=== PATIENT | female | born 1945 | race Caucasian/White ===

== ENCOUNTER 2020-11-02 15:26 | Inpatient (IN) | payer OTHER ==
[~2020-11-02] VITALS: Ht 157.5 cm; Wt 94.3 kg
[2020-11-02 15:37] VITALS: BP 153/69
[2020-11-02] MEDS ORDERED: ASA81BEC PO (15:58)
[2020-11-02 16:03] LABS: ABSOLUTE LYMPHOCYTES 1.4 thou/uL (0.8-5.3); ABSOLUTE MONOCYTES 0.4 thou/uL (0.0-1.2); ABSOLUTE NEUTROPHILS 2.5 thou/uL (1.6-8.1); BASOPHILS 0.6 %; EOSINOPHILS 1.1 %; HEMATOCRIT 33.8 % (37.0-47.0); HEMOGLOBIN 11.3 gm/dL (12.0-15.0); LYMPHOCYTES 33.1 %; MCH 27.9 pg (26.0-34.0); MCHC 33.6 g/dL (28.0-37.0); MONOCYTES 8.1 %; MPV 7.3 fl. (7.2-11.1); NUCLEATED RBCS 0 /100WBC; PLATELET COUNT* 108 thou/uL (150-400); POLYS 57.1 %; RBC 4.07 mil/uL (4.20-5.00); RDW-CV 13.9 % (10.5-14.5); WBC 4.4 thou/uL (4.0-11.0)
[2020-11-02 16:16] LABS: APTT 25.6 Seconds (25.0-31.3); CALCIUM 8.7 mg/dL (8.5-10.1); CREATININE 1.3 mg/dL (0.6-1.3); POTASSIUM 4.5 mmol/L (3.5-5.1); PROTIME 10.6 Seconds (9.20-11.50)
--- NOTE | 2020-11-02 16:20 | EKG ---
[place] [address] ELECTROCARDIOGRAM REPORT Name: KARI DELGADILLO Room: [facility]#: [id number] Admission: 11/02/20 Attend Phys: Discharge: Date of : 47 Date of Service: 11/02/20 1543 Report #: [id number] THIS REPORT FOR: //name// [facility] ED Test Date: 2020-11-02 Test Time: 15:43:54 Pat Name: KARI DELGADILLO Department: Room: Gender: F Features Reporter: RODRICK : 1945 Requested By: Justin Morris Order Number: [id number] MD: Gabo Chappell Measurements Intervals [place] Rate: 81 P: 3 VA: 156 QRS: 32 QRSD: 97 T: -12 QT: 368 QTc: 428 Interpretive Statements Sinus rhythm Borderline T abnormalities, anterior leads No previous ECG available for comparison Electronically Signed On 11-02-2020 16:20:09 [employer]LE[employer] SERVICES REPRESENTATIVE by Gabo Chappell [email or web address] <ELECTRONICALLY SIGNED> By: Gabo Chappell MD, [facility] 11/02/20 1620 1543 1543 Gabo Chappell MD, FACC /EPI
[2020-11-02 16:28] LABS: ALBUMIN 3.7 g/dL (3.4-5.0); TOTAL BILIRUBIN 0.7 mg/dL (<0.1-1.0); TOTAL PROTEIN 7.9 g/dL (6.4-8.2)
[2020-11-02 16:48] LABS: URINE BILIRUBIN NEGATIVE (Negative); URINE BLOOD 2+ (Negative); URINE CLARITY CLEAR; URINE COLOR YELLOW; URINE GLUCOSE-RANDOM NEGATIVE (Negative); URINE KETONES NEGATIVE (Negative); URINE LEUKOCYTES-REFLEX NEGATIVE (Negative); URINE NITRITE-REFLEX NEGATIVE (Negative); URINE PROTEIN 1+ (Negative); URINE SPECIFIC GRAVITY 1.025 (1.005-1.030)
[2020-11-02 16:58] LABS: CRYSTALS None Seen /LPF (None Seen); HYALINE CASTS 0-3 Few /LPF (None Seen); MUCUS None Seen strn/LPF (None Seen); SQUAMOUS 4-10 Moderate /LPF (0-3); URINE RBC 3-10 Few /HPF (0-2); URINE WBC-REFLEX 0-5 Rare /HPF (0-5)
[2020-11-02] MEDS ORDERED: LIPITOR10 MG PO (17:50)
[2020-11-02] MEDS ORDERED: NORVASC 2.5 MG2.5 M1 PO (17:50)
[2020-11-02] MEDS ORDERED: TOPROL XL25 MG PO (17:51)
[2020-11-02 18:13] VITALS: BP 106/70
--- NOTE | 2020-11-02 19:02 | NUR ---
PT ORIENTED TO ROOM AND UNIT, BED LOW AND LOCKED, SIDE RAILS UPX3, CALL LIGHT IN REACH. WILL CONTINUE TO ASSESS.
[2020-11-02 19:15] VITALS: BP 120/64
[2020-11-02 22:00] VITALS: BP 106/57
--- NOTE | 2020-11-03 04:38 | NUR ---
PT A&O X 4. ON 2L BY SD. MEDS GIVEN ORDERED. DENIED PAIN. UP TO BSC INDENPENDENTLY. CALL LIGHT WITHIN REACH. WILL CONTINUE TO MONITOR.
[2020-11-03 07:55] VITALS: BP 112/61
[2020-11-03 16:00] VITALS: BP 114/64
--- NOTE | 2020-11-03 16:50 | NUR ---
UNABLE TO REACH DAUGHTER ON PHONE. REVIEWED CHART AND SPOKE WITH TEAM. PT.DOES NOT SPEAK DJ[place] WELL. SHE LIVES WITH HER DAUGHTR AND SON AND EXTENDED FAMILY. SHE HAS A CANE. HAS BEEN ABLE TO GET UP INDEPENDENTLY. HAS O2 BUT NOT AT HOME. CM WILL FOLLOW FOR DISCHARGE PLANNING.
--- NOTE | 2020-11-03 18:46 | NUR ---
PT A&OX4, VSS. PT REMAINS AFEBRILE THIS SHIFT. PT UP TO BSC INDEPENDENTLY. PT ON 2L O2 BY NC. PT AMB W/CANE AND ASSIST X1. IV TO LAC PATENT, SALINE LOCKED. PT ACCUCHECK TO MONITOR, NO INSULIN AT THIS TIME. PT DGTR UPDATED BY PHONE. PT RESTS IN BED WITH CALL LIGHT IN REACH, WILL CONTINUE TO MONITOR.
[2020-11-03 19:27] VITALS: BP 137/71
[2020-11-04 00:18] VITALS: BP 118/68
--- NOTE | 2020-11-04 04:13 | NUR ---
PATIENT HAS REMAINED ALERT AND ORIENTED X 4 THROUGHOUT THE SHIFT AND RESTING QUIETLY ON HOURLY ROUNDS. UP INDEPENDENTLY IN THE ROOM WITH CANE AND STEADY GAIT. NO FEVER THIS SHIFT. DECLINED HS TYLENOL. VITAL SIGNS STABLE ON O2 2L/MIN BY NASAL CANNULA. BM THIS SHIFT. CONTINUE TO MONITOR.
[2020-11-04 06:14] LABS: HEMATOCRIT 33.4 % (37.0-47.0); HEMOGLOBIN 11.2 gm/dL (12.0-15.0); MCH 27.8 pg (26.0-34.0); MCHC 33.6 g/dL (28.0-37.0); MCV 82.8 fL (80.0-100.0); MPV 7.6 fl. (7.2-11.1); RBC 4.03 mil/uL (4.20-5.00); RDW-CV 13.8 % (10.5-14.5); WBC 10.6 thou/uL (4.0-11.0)
[2020-11-04 06:34] LABS: ALBUMIN 3.6 g/dL (3.4-5.0); CALCIUM 8.7 mg/dL (8.5-10.1); CREATININE 1.2 mg/dL (0.6-1.3); MAGNESIUM 2.3 mg/dL (1.8-2.4); TOTAL BILIRUBIN 0.5 mg/dL (<0.1-1.0); TOTAL PROTEIN 7.5 g/dL (6.4-8.2)
[2020-11-04] MEDS ORDERED: AZITHROMYCIN 2250 MG PO (09:50)
[2020-11-04] MEDS ORDERED: VITAMIN C1000 MG PO (09:50)
[2020-11-04] MEDS ORDERED: VITAMIN D325 MCG PO (09:50)
[2020-11-04] MEDS ORDERED: ZINC SULFATE 2220 MG PO (09:50)
[2020-11-04 12:45] VITALS: BP 126/69
== END 2020-11-04 14:45 | disposition home or self-care (01) | DRG 177 ==
LOC: M.ERS 15:26 → M.TBA-ER 17:03 → M.ORTHSURG 17:03
PROVIDERS: Family Medicine; ADMIT Internal Medicine; ATTEND Internal Medicine
DX: U07.1 COVID-19 (principal); J96.01 Acute respiratory failure with hypoxia; J12.82 Pneumonia due to coronavirus disease 2019; E78.5 Hyperlipidemia, unspecified; I10 Essential (primary) hypertension; E66.01 Morbid (severe) obesity due to excess calories; Z96.652 Presence of left artificial knee joint; Z68.38 Body mass index [BMI] 38.0-38.9, adult; Z85.6 Personal history of leukemia; Z79.82 Long term (current) use of aspirin; Z79.899 Other long term (current) drug therapy